=== PATIENT | female | born 1980 | race Caucasian/White ===

== ENCOUNTER 2017-05-13 22:22 | Inpatient (IN) | payer OTHER ==
[~2017-05-13] VITALS: Ht 165.1 cm; Wt 106.5 kg
[~2017-05-13 22:22] MED LIST: FEOSOL325 MG PO; LORTAB 10-3251 EACH PO; MILK THISTLE150 MG PO; MS CONTIN,ORAMO15 M1 PO; VOLTAREN75 MG PO
[2017-05-14 06:10] VITALS: BP 140/82
[2017-05-14 10:24] LABS: HEMATOCRIT 38.5 % (36.0-46.0); MCV 92.3 FL (83-99)
[2017-05-14 11:30] VITALS: BP 137/59
[2017-05-14 14:33] VITALS: BP 111/54
[2017-05-14 17:30] VITALS: BP 101/59
[2017-05-14 17:36] LABS: INTERNAL CONTROL VALID? YES
[2017-05-14 20:16] VITALS: BP 111/54
[2017-05-14 23:34] VITALS: BP 107/58
[2017-05-15 04:01] VITALS: BP 111/56
[2017-05-15 05:49] LABS: HEMATOCRIT 33.1 % (36.0-46.0); MCV 91.9 FL (83-99)
[2017-05-15 15:54] VITALS: BP 129/58
[2017-05-15 20:04] VITALS: BP 119/58
[2017-05-16 00:27] VITALS: BP 129/61
[2017-05-16 04:15] VITALS: BP 120/60
[2017-05-16 05:13] LABS: HEMATOCRIT 32.2 % (36.0-46.0); MCV 90.4 FL (83-99)
[2017-05-16 08:29] VITALS: BP 135/67
[2017-05-16] MEDS ORDERED: CELECOXIB200 MG PO (09:02)
[2017-05-16] MEDS ORDERED: OXYCODONE HCL5 MG PO (09:02)
[2017-05-16] MEDS ORDERED: ELIQUIS2.5 MG PO (09:02)
[2017-05-16 12:00] VITALS: BP 115/60
== END 2017-05-16 14:06 | disposition home health service (06) | DRG 470 ==
LOC: ENRESERV 22:22 → 3WEST 05-14 05:31 → 2SOUTH 05-14 05:31 → 3WEST 05-14 11:05
PROVIDERS: Orthopaedic Surgery
PROC: 0SRB04A Replacement of Left Hip Joint with Ceramic on Polyethylene Synthetic Substitute, Uncemented, Open Approach (ICD-10-PCS; principal; 2017-05-14)
DX: M16.12 Unilateral primary osteoarthritis, left hip (principal); M25.552 Pain in left hip; Z86.718 Personal history of other venous thrombosis and embolism; E66.9 Obesity, unspecified; Z68.39 Body mass index [BMI] 39.0-39.9, adult
CPT/HCPCS: 73501; 84703; 85014; 85018; J0131; J0690; J1170; J2250; J2405; J7050; J7120